=== PATIENT | male | born 1960 | race Caucasian/White ===

== ENCOUNTER → 2021-12-27 | Outpatient (CLI) | payer MEDICARE ==
--- NOTE | 2021-12-27 16:39 | XR ---
Cervical spine HISTORY: Neck pain 4 views of the cervical spine Facet arthropathy changes are present. Foraminal encroachment is present on the left at C5-6 and also on the right. There is spondylosis at C5-6 with associated loss of disc height. Cervical vertebral b odies show preserved height but C7 and T1 are not seen. Prominence over the upper thoracic region of the soft tissues is consistent with patient's history. Prevertebral soft tissues are normal. IMPRESSION: Degenerative disc disease, soft tissue prominence, foraminal encroachment.
== END | disposition home or self-care (01) ==
LOC: RADXRYALE 14:27
PROVIDERS: ATTEND Physician Assistant Medical
DX: M50.323 Other cervical disc degeneration at C6-C7 level (principal)
CPT/HCPCS: 72050

== ENCOUNTER → 2022-11-28 | Outpatient (CLI) | payer MEDICARE ==
--- NOTE | 2022-11-28 15:02 | XR ---
EXAMINATION TYPE: XR lumbosacral spine 5 views DATE OF EXAM: 11/28/2022 Comparison: 05/30/2022 Clinical History: 62-year-old male [id number] IDD, LBP Findings: Moderate to advanced degenerative disc disease L5-S1 and moderate at L4-L5. Mild within the upper lum bar spine. No pars interarticularis defect. Facet arthropathy mid to lower lumbar spine. Vertebral graham dy heights are preserved and alignment is maintained. 5 lumbar type vertebral bodies. Impression: 1. Moderate to advanced degenerative disc disease L5-S1 appears to have progressed from 2021. Moderat e at L4-L5 and mild within the upper lumbar spine is similar. 2. Hypertrophic facet arthropathy lower lumbar spine redemonstrated. 3. No vertebral compression collapse or malalignment.
== END | disposition home or self-care (01) ==
LOC: RADXRYALE 11:51
PROVIDERS: ATTEND Physician Assistant Medical
DX: M51.36 Other intervertebral disc degeneration, lumbar region (principal); M47.816 Spondylosis without myelopathy or radiculopathy, lumbar region
CPT/HCPCS: 72110

== ENCOUNTER → 2023-11-18 | Outpatient (CLI) | payer MEDICARE ==
--- NOTE | 2023-11-18 12:29 | XR ---
EXAMINATION TYPE: XR knee complete LT DATE OF EXAM: 11/18/2023 12:24 PM INDICATION: Patient age:Male; 63 years old; Reason for study: [id number] LT KNEE PAIN; [facility]. COMPARISON: None. TECHNIQUE: The Left knee(s) was examined in Frontal, lateral and oblique projections. FINDINGS: No evidence of any acute osseous pathology, soft tissue swelling, or joint effusion is no bridgette. Incidental fabella. IMPRESSION: No acute osseous pathology.
== END | disposition home or self-care (01) ==
LOC: RADXRYALE 11:59
PROVIDERS: ATTEND Physician Assistant Medical
DX: M25.562 Pain in left knee (principal)

== ENCOUNTER → 2024-08-14 | Outpatient (CLI) | payer MEDICARE ==
--- NOTE | 2024-08-14 10:11 | XR ---
EXAMINATION TYPE: XR cervical spine comp DATE OF EXAM: 08/14/2024 9:35 AM COMPARISON: Cervical spine x-ray December 27, 2021 CLINICAL INDICATION: Male, 64 years old with history of [id number] CDD,RADICULOPATHY,RT ARM P AIN, pain TECHNIQUE: Frontal, lateral, oblique, swimmers, and open mouth view of the cervical spine are obtaine d. FINDINGS: The cervical spine is visualized in its entirety from C1 thru the top of T1 level, it is s table and satisfactory in alignment. The pre-vertebral soft tissue appears within normal limits. Th e C1-C2 articulation is within normal limits on the open mouth view. Vertebral body heights and disc space heights are fairly well maintained. The oblique images show some multilevel neural foraminal n arrowing encroachment bilaterally similar to prior. Overlying soft tissue is unremarkable. IMPRESSION: As above. MRI noted more sensitive to evaluate for possible bilateral neural foraminal na rrowing. [facility], , 08/14/2024 10:09 AM
== END | disposition home or self-care (01) ==
LOC: RADXRYALE 08:52
PROVIDERS: ATTEND Physician Assistant Medical
DX: M50.10 Cervical disc disorder with radiculopathy, unspecified cervical region (principal); M79.601 Pain in right arm
CPT/HCPCS: 72050

== ENCOUNTER → 2024-09-17 | Outpatient (CLI) | payer MEDICARE ==
--- NOTE | 2024-09-17 08:59 | MR ---
MRI CERVICAL SPINE: CLINICAL HISTORY: Right arm tingling. cervical region radiculopathy. TECHNIQUE: Multiplanar, multisequence imaging of the cervical spine is performed without IV contrast. Prior cervical spine x-ray August 14, 2024. FINDINGS: Sagittal images of the cervical spine show the craniocervical junction to appear within nor mal limits. The cervical and upper thoracic spinal cord is normal in caliber and signal. Vertebral alignment is anatomic. The vertebral body heights are normal. Mild to moderate disc space narrowing at C5-C6 level. The bone marrow signal intensity is within normal limits. Axial images at C2-C3 level appear within normal limits. Axial images at C3-C4 levels show uncovertebral facet degenerative changes bilaterally causing mild r ight-sided neural foraminal narrowing. Axial images at C4-C5 level shows a focal central disc protrusion effacing anterior thecal sac and un covertebral facet degenerative change causing moderate left-sided neural foraminal narrowing. Axial images at C5-C6 levels are broad-based posterior disc protrusion effacing anterior thecal sac a nd causing moderate to severe right greater than left bilateral neural foraminal narrowing. Axial images at C6-C7 level show left foraminal disc protrusion causing moderate to severe left-sided neural foraminal narrowing. Axial images at C7-T1 level show left foraminal/lateral disc protrusion causing moderate to severe le ft-sided neural foraminal narrowing IMPRESSION: Multilevel degenerative change in the cervical spine as detailed above. More prominent mu ltilevel left-sided neural foraminal narrowing is noted. [facility], , 09/17/2024 8:57 AM
== END | disposition home or self-care (01) ==
LOC: RADMRIMAIN 07:25
PROVIDERS: ATTEND Family Medicine
DX: M50.121 Cervical disc disorder at C4-C5 level with radiculopathy (principal); M47.22 Other spondylosis with radiculopathy, cervical region; M99.71 Connective tissue and disc stenosis of intervertebral foramina of cervical region
CPT/HCPCS: 72141